=== PATIENT | female | born 1995 | race Caucasian/White ===

== ENCOUNTER 2018-05-28 16:21 | Emergency (ER) | payer OTHER, SELFPAY ==
--- NOTE | 2018-05-28 17:45 | RAD ---
FEXAM: Right foot radiographs 3 views PROVIDED CLINICAL HISTORY: Pain FINDINGS: There is no evidence for fracture or other acute osseous abnormality. Alignment appears anatomic. Leslie nt spaces appear preserved. IMPRESSION: No evidence for an acute osseous abnormality. If there is persistent clinical concern, conservative m anagement and follow-up imaging advised.
--- NOTE | 2018-05-28 17:49 | RAD ---
FEXAM: Right ankle radiographs 3 views PROVIDED CLINICAL HISTORY: Pain FINDINGS: Question nondisplaced lateral process talus fracture. Alignment appears anatomic. Joint spaces appear preserved. Lateral malleolar soft tissue prominence IMPRESSION: Question nondisplaced lateral process talus fracture.
--- NOTE | 2018-05-28 19:13 | CT ---
FEXAM: CT right ankle without contrast PROVIDED CLINICAL HISTORY: Ankle pain status post injury COMPARISON: Radiograph earlier same date FINDINGS: Prominent lateral malleolar soft tissue swelling that may reflect lateral ankle ligamentous injury. N o widening of the ankle mortise. No regional joint effusion. No evidence for lateral process talus fr acture as questioned on radiographs. No evidence for fracture. Alignment appears anatomic. Joint spac es appear preserved. IMPRESSION: No evidence for fracture.
== END 2018-05-28 19:50 | disposition home or self-care (01) ==
LOC: MADERS 16:21
DX: S93.401A Sprain of unspecified ligament of right ankle, initial encounter (principal); X50.9XXA Other and unspecified overexertion or strenuous movements or postures, initial encounter